=== PATIENT | male | born 1940 | race Caucasian/White ===

== ENCOUNTER 2019-04-17 11:28 | Emergency (ER) | payer MEDICARE ==
[~2019-04-17] VITALS: Ht 170.2 cm; Wt 120.9 kg
[~2019-04-17 11:28] MED LIST: ALLOPURINOL100 MG PO; ASPIRIN EC81 MG PO; AUGMENTIN875TAB PO; BENAZEPRIL40 M1 PO; CLONIDINE0.1 MG PO; MAXIDE1 COMBO PO; PERCOCET 5/325M1 TAB PO; ROCEPHIN 1 GM1 GM IM; ROCEPHIN 1 GM1 GM IV
[2019-04-17] MEDS ORDERED: FUROSEMIDE20 MG PO (11:37)
[2019-04-17] MEDS ORDERED: LOSARTAN POTASS50 MG PO (11:37)
[2019-04-17 12:29] LABS: HEMOGLOBIN 13.5 g/dl (14.0-18.0); IMMATURE GRANULOCYTES 0.6 % (0.0-5.0); MEAN CELL VOLUME 94.7 fL CALC (80.0-100.0); MEAN CORPUSCULAR HGB 32.6 pG CALC (26.0-32.0); MEAN CORPUSCULAR HGB CONC 34.4 g/L CALC (32.0-36.0); NEUT# 6.64 thou/uL (1.82-7.42); RED BLOOD COUNT 4.14 mill/uL (4.70-6.10); RED CELL DISTRI WIDTH 14.6 % (11.5-15.5)
[2019-04-17 12:30] LABS: HEMATOCRIT 39.2 % (39.0-50.0)
[2019-04-17 13:20] LABS: CREATININE 2.1 mg/dL (0.7-1.3); POTASSIUM 3.8 mmol/l (3.5-5.1)
[2019-04-17 15:59] VITALS: BP 122/74
[2019-04-17 16:26] LABS: URINE BILIRUBIN - DIPSTICK NEGATIVE (NEGATIVE); URINE BLOOD DIPSTICK TRACE-LYSED (NEGATIVE); URINE COLOR YELLOW; URINE GLUCOSE - DIPSTICK NEGATIVE (NEGATIVE); URINE KETONE NEGATIVE (NEGATIVE); URINE LEUK ESTERASE NEGATIVE (NEGATIVE); URINE NITRITE - DIPSTICK NEGATIVE (Negative); URINE PROTEIN - DIPSTICK 30 mg/dL (NEG-TRACE); URINE UROBILINOGEN - DIPSTICK 0.2 E.U./dL (0.2)
[2019-04-17 16:34] LABS: URINE RBC 0-2 RBC/hpf (0-5); URINE WBC 0-2 WBC/hpf (0-5)
== END 2019-04-17 16:18 | disposition left against medical advice (07) ==
LOC: ED 11:28
PROVIDERS: Family Medicine
DX: M86.8X7 Other osteomyelitis, ankle and foot (principal); L97.529 Non-pressure chronic ulcer of other part of left foot with unspecified severity; I10 Essential (primary) hypertension; F17.220 Nicotine dependence, chewing tobacco, uncomplicated; Z91.19 Patient's noncompliance with other medical treatment and regimen

== ENCOUNTER 2019-08-12 | Emergency (ER) | payer MEDICARE ==
[~2019-08-12] MED LIST changes: +FUROSEMIDE20 MG PO; +LOSARTAN POTASS50 MG PO
[2019-08-12 11:48] LABS: HEMATOCRIT 35.9 % (39.0-50.0); HEMOGLOBIN 11.8 g/dl (14.0-18.0); IMMATURE GRANULOCYTES 0.4 % (0.0-5.0); MEAN CORPUSCULAR HGB 30.9 pG CALC (26.0-32.0); MEAN CORPUSCULAR HGB CONC 32.9 g/L CALC (32.0-36.0); NEUT# 6.43 thou/uL (1.82-7.42); RED BLOOD COUNT 3.82 mill/uL (4.70-6.10); RED CELL DISTRI WIDTH 14.4 % (11.5-15.5)
[2019-08-12 12:03] LABS: ALBUMIN 4.4 g/dL (3.2-5.0); TOTAL PROTEIN 8.3 g/dL (6.3-8.2)
[2019-08-12 12:05] LABS: BILIRUBIN, TOTAL 0.6 mg/dL (0.0-1.4); POTASSIUM 5.2 mmol/l (3.5-5.1)
[2019-08-12 12:06] LABS: CREATININE 5.6 mg/dL (0.7-1.3)
== END 2019-08-12 12:55 | disposition left against medical advice (07) ==
PROVIDERS: Family Medicine
DX: N17.9 Acute kidney failure, unspecified (principal); I12.9 Hypertensive chronic kidney disease with stage 1 through stage 4 chronic kidney disease, or unspecified chronic kidney disease; N18.9 Chronic kidney disease, unspecified; F17.220 Nicotine dependence, chewing tobacco, uncomplicated; Z91.19 Patient's noncompliance with other medical treatment and regimen